=== PATIENT | female | born 1960 | race Caucasian/White ===

== ENCOUNTER 2017-08-22 13:58 | Outpatient (CLI) | payer OTHER | END 2017-08-22 13:59 | disposition home or self-care (01) | LOC: BICMAMMO 13:58 | PROVIDERS: ATTEND Anesthesiology Pain Medicine | DX: Z12.31 Encounter for screening mammogram for malignant neoplasm of breast (principal); M48.02 Spinal stenosis, cervical region; M47.892 Other spondylosis, cervical region; M43.13 Spondylolisthesis, cervicothoracic region; M99.81 Other biomechanical lesions of cervical region; R92.1 Mammographic calcification found on diagnostic imaging of breast; Z98.890 Other specified postprocedural states | CPT/HCPCS: 72052; 72141; 77063; 77067 ==

== ENCOUNTER 2017-10-22 12:59 | Outpatient (CLI) | payer OTHER ==
--- NOTE | 2017-10-22 14:13 | CT ---
CERVICAL SPINE CT WITHOUT CONTRAST: DATE: 10/22/17. COMPARISON: None. HISTORY: Degenerative disk disease, history of C4-5 fusion, neck pain at the base of the skull extending into the head with associated headaches. TECHNIQUE: Serial axial CT imaging is obtained at 2 mm intervals from the skull base through the upper thoracic spine without contrast. Coronal and sagittal reformatted imaging obtained. FINDINGS: Imaged paranasal sinuses/mastoid air cells grossly unremarkable. There is moderate degenerative change at the atlantoaxial interspace. The craniocervical junction ap pears intact. Occipital condyles and dens demonstrate no acute findings. C1-2 articulation appears within normal l imits. Anterior discectomy and fusion hardware present at C4-5. C2-3: Facet and uncovertebral osteophyte formation noted bilaterally, right greater than left. Ther e is probable mild right neural foraminal stenosis. No osseous cause of significant central canal or left neural foraminal stenosis. C3-4: Disk space narrowing and mild posterior osteophyte formation with probable mild central canal stenosis. Bilateral facet and uncovertebral osteophyte formation, right greater than left, with mild /moderate neural foraminal stenosis. C4-5: Mild facet and uncovertebral osteophyte formation on the left. Mild left neural foraminal cielo nosis suspected. No osseous cause of significant central canal or right neural foraminal stenosis. C5-6: Disk space narrowing and degenerative end plate change noted with mild posterior osteophyte. There is uncovertebral osteophyte encroachment on the right neural foramen with moderate right neural foraminal stenosis. No osseous cause of significant central canal or left neural foraminal stenosis . C6-7: There is disk space narrowing, degenerative end plate change, and posterior osteophyte formati on. No osseous cause of significant central canal or right neural foraminal stenosis. Severe left n eural foraminal stenosis noted on the basis of uncovertebral osteophyte encroachment. C7-T1: No osseous cause of significant central canal or neural foraminal stenosis. Imaged lung apices unremarkable. No acute fracture or evidence of dislocation is noted. No worrisom e lytic or blastic bone lesion is seen. Postoperative clips are noted in the region of the thyroid bed right of midline with findings suggest ing prior surgical resection of the isthmus and right lobe of the thyroid gland. IMPRESSION: Multilevel degenerative and postoperative change within the cervical spine as described above. POS: [facility]
== END 2017-10-22 13:00 | disposition home or self-care (01) ==
LOC: TBSIIMAG 12:59
PROVIDERS: ATTEND Surgery
DX: M50.30 Other cervical disc degeneration, unspecified cervical region (principal); M48.02 Spinal stenosis, cervical region; M47.892 Other spondylosis, cervical region; Z98.890 Other specified postprocedural states
CPT/HCPCS: 72125

== ENCOUNTER 2018-03-10 08:03 | Outpatient (CLI) | payer OTHER ==
--- NOTE | 2018-03-10 09:58 | RAD ---
CERVICAL SPINE 3 VIEWS: HISTORY: A 57-year-old female with a history of cervical spondylosis. Prior surgery. COMPARISON: 08/22/2017. FINDINGS: Anterior cervical fusion changes at C3-C4 with intradiskal prosthesis. The previously noted metal pl ate and screws at C4-C5 have been removed with persistent fusion of the C4-C5 space. C5-C6 and C6-C7 demonstrate severe narrowing and hypertrophic osteophytosis. There is generalized facet arthrosis. C1 and C2 odontoid are obscured on the AP open-mouth view. IMPRESSION: Postoperative changes. Extensive spondylosis. No significant malalignment. POS: [facility]
== END 2018-03-10 08:04 | disposition home or self-care (01) ==
LOC: SCSRAD 08:03
DX: M47.892 Other spondylosis, cervical region (principal); Z98.1 Arthrodesis status
CPT/HCPCS: 72040

== ENCOUNTER 2018-08-27 08:19 | Outpatient (CLI) | payer OTHER ==
--- NOTE | 2018-08-27 09:39 | MMO ---
Bilateral MAMMO Bilat Screen [facility]. CLINICAL HISTORY: Patient is 57 years old and is seen for screening. The patient has the following family history of breast cancer: cousin female. The patient has no personal history of cancer. VIEWS: The views performed were: bilateral craniocaudal and bilateral mediolateral oblique. FILMS COMPARED: The present examination has been compared to prior imaging studies performed at [facility] on 08/22/2017, and at [facility] on 03/03/2014, 06/21/2015 and 06/23/2015. This study has been interpreted with the assistance of computer-aided detection. MAMMOGRAM FINDINGS: The breasts are heterogeneously dense, which could obscure a lesion on mammography. There are stable calcifications seen in both breasts. There are no suspicious masses, suspicious calcifications, or new areas of architectural distortion. IMPRESSION: THERE IS NO MAMMOGRAPHIC EVIDENCE OF MALIGNANCY. A ROUTINE FOLLOW-UP MAMMOGRAM IN 1 YEAR IS RECOMMENDED. ACR BI-RADS Category 2 - Benign finding MAMMOGRAPHY NOTE: 1. A negative mammogram report should not delay a biopsy if a dominant of clinically suspicious mass is present. 2. Approximately 10% to 15% of breast cancers are not detected by mammography. 3. Adenosis and dense breasts may obscure an underlying neoplasm.
== END 2018-08-27 08:20 | disposition home or self-care (01) ==
LOC: SCSMAMMO 08:19
PROVIDERS: ATTEND Obstetrics & Gynecology
DX: Z12.31 Encounter for screening mammogram for malignant neoplasm of breast (principal)
CPT/HCPCS: 77067

== ENCOUNTER 2018-10-19 12:17 | Outpatient (CLI) | payer OTHER ==
--- NOTE | 2018-10-19 13:17 | RAD ---
CERVICAL SPINE SERIES 3 VIEWS WITH FLEXION AND EXTENSION: HISTORY: c-SPINE SURGERY IN March of 2018. This is a checkup. FINDINGS: The patient has undergone an anterior cervical fusion with placement of plate and screws at the C3-4 level. There is bony fusion across the C4-5 level. Marked disk narrowing at C5-6 and moderate disk narrowing at C6-7. Anterolysis of C7 on T1 are noted. All of these changes appear stable. Limited motion is seen on these flexion and extension views. IMPRESSION: Stable postop change. POS: [facility]
== END 2018-10-19 12:18 | disposition home or self-care (01) ==
LOC: SCSRAD 12:17
PROVIDERS: ATTEND Neurological Surgery
DX: Z47.89 Encounter for other orthopedic aftercare (principal); Z98.1 Arthrodesis status
CPT/HCPCS: 72040